=== PATIENT | male | born 1980 | race Asian ===

== ENCOUNTER 2017-06-21 08:41 | Observation (INO) | payer OTHER ==
[~2017-06-21] VITALS: Ht 182.9 cm; Wt 85.2 kg
[2017-06-21] VITALS (35 sets, daily range): BP systolic 114–128; BP diastolic 60–81; PULSE 52–80; RESP 10–24; Ht 182.9 cm; Wt 85.2 kg
[2017-06-21] MEDS ORDERED: CEFAZOLIN 2 GM/50 ML (PMX) 50 ML IVPB SCH (12:30)
[2017-06-21] MEDS: NS + KCL 20 MEQ 1,000 ML IV SCH (13:00)
[2017-06-21] MEDS ORDERED: VANCOMYCIN 1 GM INJ ONE (14:01)
[2017-06-21] MEDS ORDERED: LIDOCAINE 1% (MPF) 30 ML INJ ONE (14:01)
[2017-06-21] MEDS ORDERED: THROMBIN 5000 UNIT VIAL ONE (14:02)
[2017-06-21] MEDS ORDERED: BUPIVACAINE 0.5% (SDV) 30 ML INJ ONE (14:02)
[2017-06-21] MEDS ORDERED: POLYMYXIN/BACITRACIN 1L IRRIG ONE (14:02)
[2017-06-21] MEDS ORDERED: LIDOCAINE 2%/EPI 30 ML INJ ONE (14:02)
[2017-06-21] MEDS ORDERED: GELATIN SIZE 100 SPONGE ONE (14:02)
[2017-06-21] MEDS ORDERED: METOCLOPRAMIDE 10 MG INJ ONE (14:55)
[2017-06-21] MEDS ORDERED: MIDAZOLAM 1 MG/ML 2 ML INJ ONE (14:55)
[2017-06-21] MEDS ORDERED: PROPOFOL 20 ML ONE (14:55)
[2017-06-21] MEDS ORDERED: ROCURONIUM 50 MG INJ ONE (14:55)
--- NOTE | 2017-06-21 15:00 | HPN ---
Date/Time of Note Date/Time of Note DATE: 06/21/17 TIME: 14:59 Interval H&P Admission Note Pt. seen H&P reviewed: No system changes SHANON MALONEY MD Jun 21, 2017 14:59
[2017-06-21] MEDS ORDERED: DEXAMETHASONE 4 MG/ML 1 ML INJ ONE (15:08)
[2017-06-21] MEDS ORDERED: CEFAZOLIN 1 GM INJ ONE (15:08)
[2017-06-21] MEDS ORDERED: HYDROmorphONE 2 MG/ML SYG ONE (16:08)
[2017-06-21] MEDS ORDERED: GLYCOPYRROLATE 0.4 MG INJ ONE (17:06)
[2017-06-21] MEDS ORDERED: NEOSTIGMINE 3 MG/3 ML SYRINGE ONE (17:06)
--- NOTE | 2017-06-21 17:29 | OPR ---
Date/Time of Note Date/Time of Note DATE: 06/21/17 TIME: 17:26 Operative Report Procedure Date: Jun 21, 2017 Preoperative Diagnosis 1. L5-S1 herniated disc. 2. Right S1 radiculopathy. Postoperative Diagnosis 1. L5-S1 herniated disc. 2. Right S1 radiculopathy. Operation Performed 1. Right L5-S1 microdiscectomy. Surgeon: SHANON MALONEY MD Anesthesia Type: general Anesthesiologist: DESTINEY SHARMA MD Estimated Blood Loss: 0 - 10 ml's Transfusion Required: no Specimens L5-S1 disc Grafts/Implants: none Tubes/Drains none Complications: no Complications none Pt Condition Post Procedure: stable Disposition: PACU SHANON MALONEY MD Jun 21, 2017 17:29
[2017-06-21] MEDS ORDERED: ACETAMINOPHEN 325 MG TAB PO PRN (17:30)
[2017-06-21] MEDS ORDERED: DIAZEPAM 5 MG TAB PO PRN (17:30)
[2017-06-21] MEDS ORDERED: ONDANSETRON 4 MG INJ IV PRN ×2 (17:30→18:00)
[2017-06-21] MEDS ORDERED: HYDROCODONE/APAP (5/325) TAB PO PRN ×2 (17:30)
[2017-06-21] MEDS ORDERED: ZOLPIDEM 5 MG TAB PO PRN (17:30)
[2017-06-21] MEDS ORDERED: CEPASTAT LOZENGE MT PRN (17:30)
[2017-06-21] MEDS ORDERED: DIPHENHYDRAMINE 50 MG CAP PO PRN (17:30)
--- NOTE | 2017-06-21 17:50 | RADRPT ---
PROCEDURE: Intraoperative imaging of the lumbar spine with fluoroscopy. CLINICAL INDICATION: Back pain. Intraoperative. TECHNIQUE: Four images of the lumbar spine were obtained in the operating room with an image inten sifier. No radiologist was in attendance. Fluoroscopy time is 4 seconds . COMPARISON: No prior study is available for comparison. FINDINGS: Images demonstrate surgical instruments overlying the lower lumbar spine. IMPRESSION: 1. Intraoperative imaging of the lumbar spine. RPTAT: QQ .Gregg Hercules MD, MD Date Time Electronically viewed and signed by .Gregg Hercules MD, on 06/21/2017 17:50 .R/
[2017-06-21] MEDS ORDERED: HYDROmorphONE (0.2 MG/ML) 10ML SYG IV PRN ×3 (18:00)
[2017-06-21] MEDS ORDERED: METOCLOPRAMIDE 10 MG INJ IV PRN (18:00)
[2017-06-21] MEDS ORDERED: MEPERIDINE 25 MG INJ IV PRN (18:00)
[2017-06-21] MEDS ORDERED: DIPHENHYDRAMINE 50 MG INJ IV PRN (18:00)
[2017-06-21] MEDS: CEFAZOLIN 1 GM/50 ML (PMX) 50 ML IVPB SCH ×2 (18:25→23:45)
[2017-06-21] MEDS: SOD CHLORIDE 0.45% 1,000 ML IV SCH (18:33)
--- NOTE | 2017-06-21 20:21 | OPR ---
DATE OF OPERATION: 06/21/2017 PREOPERATIVE DIAGNOSES: 1. L5-S1 herniated disc. 2. Right L5-S1 radiculopathy. POSTOPERATIVE DIAGNOSES: 1. L5-S1 herniated disc. 2. Right L5-S1 radiculopathy. OPERATION PERFORMED: Right L5-S1 microdiskectomy. SURGEON: Florencio Martinez MD ANESTHESIOLOGIST: Karuna Bright MD ANESTHESIA: General endotracheal. ESTIMATED BLOOD LOSS: 5 mL. DRAINS PLACED: None. SPECIMEN COLLECTED: Herniated disc. FINDINGS: L5-S1 herniated disc with S1 nerve root compression. COMPLICATIONS: None. DISPOSITION: Recovery. INDICATIONS: Patient is a 36-year-old male with right L5 lower extremity pain consistent with S1 radiculopathy. MRI revealed a large herniated disc bulge causing compression of the S1 nerve root. The patient had loss of ankle reflexes and had some transient weakness but this had improved. The risks, benefits and alternatives to surgical intervention were discussed, the patient elected for surgery. OPERATIVE PROCEDURE: The patient was brought into the OR. He was sedated, intubated, anesthesia successfully induced. Sequential compression devices were placed. A Kirkpatrick catheter was not placed. Perioperative antibiotics were given. The patient was placed in a prone position on a Fito frame that was on a Eliud table. All pressure points were checked for appropriate padding. The patient was sterilely prepped and draped. Fluoroscopy was used to localize the initial incision, and the patient was sterilely prepped and draped. Electrophysiologic monitoring was performed for the nerve root just showed initial 40% diminution of the S1 nerve root on the right. After surgical time-out, the procedure began. A 10 blade knife was used to make an incision above the spinous processes of L5 and S1. Bovie electrocautery was used to dissect through the subcutaneous tissue down to the spinous processes. Cisco's were placed on the spinous processes to confirm the L5 and S1 spinous processes. Bovie electrocautery was then used to unilaterally dissect laterally along the L5-S1 spinous processes and lamina to the medial aspect of the facet joint. Self- retaining retractors were placed. The microscope was then brought in for microdissection. A curette was used to separate the ligamentum flavum from the lamina. The interlaminar ligament of flavum was then removed and the thecal sac visualized. A laminotomy of the superior aspect of S1 and inferior aspect of L5 was performed, and then Kerrison rongeur was used to remove ligamentum flavum to reveal the thecal sac and S1 nerve root. There was significant bulging. The S1 nerve was compressing into the medial facet joint and could not be mobilized medially. The thecal sac was mobilized medially to reveal in the axilla a disc bulge. There did not appear to be a large rent or free disc herniation. An 11 blade knife was then used to open the disc bulge which appeared to be subligamentous, though there was also rent in the anulus. Multiple large fragments of disc were removed with pituitary rongeurs. This was carried forth superiorly and inferiorly in the subligamentous space. Also, slight rented disc space, this was removed. This was continued until there no longer appeared to be any free fragments of disc bulge. At this point, the nerve root appeared significantly decompressed and was able to be easily mobilized medially and laterally. An Adson-King was used to probe inferiorly towards the S1 foramina and superiorly towards the shoulder, and there was no evidence of compression, and shoulder nerve root could also be mobilized, and evaluation of the inferior aspect of the nerve root was also evaluated and again there was only a significant amount of fat but no evidence of any free herniated disc or further nerve root compression. With the discectomy complete, the wound was copiously irrigated with bacitracin irrigation and the self-retaining retractors removed. Bovie electrocautery was used to stop any venous oozing and then again bacitracin irrigation used to irrigate the incision. The incision was closed with 0-Vicryl interrupted sutures, and the fascia with 2-0 interrupted subcutaneous sutures, 3-0 interrupted subcuticular sutures, and running 4-0 subcuticular suture. Dermabond was placed on incision, allowed to dry and sterile dressing applied. The patient was taken off the table, extubated, and taken to recovery room. Sponge, needle and cottonoid count were reported correct at the end of the case. Electrophysiologic monitoring showed improvement in the S1 nerve root. Dictated By: Florencio Martinez MD /ted/humaira /Document#: [id number]
[2017-06-22 00:50] VITALS: BP 124/71; RESP 20
[2017-06-22] MEDS: SOD CHLORIDE 0.45% 1,000 ML IV SCH ×2 (04:19→13:29)
[2017-06-22] MEDS: CEFAZOLIN 1 GM/50 ML (PMX) 50 ML IVPB SCH ×2 (05:47→12:06)
[2017-06-22 08:00] VITALS: BP 102/57; RESP 18
--- NOTE | 2017-06-22 08:11 | PN ---
Date/Time of Note Date/Time of Note DATE: 06/22/17 TIME: 08:09 Assessment/Plan Lines/Catheters IV Catheter Type (from [facility]): Peripheral IV Kirkpatrick in Place (from [facility]): No Assessment/Plan Chief Complaint/Hosp Course POD # 1 s/p right L5-S1 microdiscectomy. Doing well. D/C home after PT. Problems: Subjective 24 Hr Interval Summary Doing well. Denies LE pain only back soreness. No fever or chills. Denies weakness. Exam/Review of Systems Vital Signs Vitals Vital Signs Date Time Temp Pulse Resp B/P Pulse Ox O2 Delivery O2 Flow Rate FiO2 06/22/17 00:50 97.4 71 20 124/71 98 06/21/17 22:46 Room Air 06/21/17 17:38 10.0 Intake and Output 06/21/17 06/21/17 06/22/17 15:00 23:00 07:00 Intake Total 1100 ml 1780 ml Output Total 5 ml 1875 ml Balance 1100 ml -5 ml -95 ml Exam Constitutional: alert, oriented, well developed Neurological: [employer] REPRESENTATIVE II-XII intact, nl mental status, nl speech, nl strength Skin: other (incision clean, dry and intact.) GRAVELY,SHANON Chen MD Jun 22, 2017 08:11
--- NOTE | 2017-06-22 08:11 | PN ---
Date/Time of Note Date/Time of Note DATE: 06/22/17 TIME: 08:09 Assessment/Plan Lines/Catheters IV Catheter Type (from [facility]): Peripheral IV Kirkpatrick in Place (from [facility]): No Assessment/Plan Chief Complaint/Hosp Course POD # 1 s/p right L5-S1 microdiscectomy. Doing well. D/C home after PT. Problems: Subjective 24 Hr Interval Summary Doing well. Denies LE pain only back soreness. No fever or chills. Denies weakness. 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
--- NOTE | 2017-06-22 08:11 | PN ---
Date/Time of Note Date/Time of Note DATE: 06/22/17 TIME: 08:09 Assessment/Plan Lines/Catheters IV Catheter Type (from [facility]): Peripheral IV Kirkpatrick in Place (from [facility]): No Assessment/Plan Chief Complaint/Hosp Course POD # 1 s/p right L5-S1 microdiscectomy. Doing well. D/C home after PT. Problems: Subjective 24 Hr Interval Summary Doing well. Denies LE pain only back soreness. No fever or chills. Denies weakness. 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
[2017-06-22] MEDS ORDERED: DOCUSATE SODIUM 100 MG CAP PO SCH (09:00)
[2017-06-22] MEDS: NS + KCL 20 MEQ 1,000 ML IV SCH (13:00)
--- NOTE | 2017-07-06 11:25 | DS ---
Date/Time of Note Date/Time of Note DATE: 07/06/17 TIME: : Discharge Summary Admission/Discharge Info Admit Date/Time Jun 21, 2017 at 11:39 Discharge Date/Time Jun 22, 2017 at 14:58 Discharge Diagnosis 1.S1 radiculopathy. 2. L5-S1 herniated disc. Patient Condition: Good Procedures Right L5-S1 microdiscectomy Hx of Present Illness 37-year-old male with history of chronic left S1 radiculopathy and L5-S1 herniated disc. The patient had not had adequate relief with nonoperative therapy and elected for surgical intervention. The patient had an absent Achilles reflex and had had some right dorsiflexion weakness but this had resolved prior to consultation. Hospital Course The patient tolerated the procedure well. Postoperatively, he stated that his radicular symptoms had improved. He denied any numbness, tingling, or weakness. He was mobilized on the day of surgery was seen by physical therapy the next day. The patient was discharged home on postoperative day 1. At the time of discharge the patient was neurologically stable without motor deficits. His incision was clean, dry, and intact. He was afebrile, tolerating a regular diet , ambulating and had been seen by physical therapy. Home Meds No Active Prescriptions or Reported Meds Follow-up Plan At discharge he was given [place], 10/325, 30 tablets, Valium 5 mg by mouth 3 times a day as needed, and Colace to prevent constipation. He was instructed that he could resume any preoperative medications. The patient was given appropriate discharge instructions and precautions. He was advised to call the office for follow-up in 2 weeks. The patient expressed understanding and agreement with the instructions and precautions given and was discharged in improved condition from her preoperative state Primary Care Provider Not On Staff Doctor Time spent on discharge: < 30 minutes SHANON MALONEY MD Jul 06, 2017 11:25
== END 2017-06-22 14:58 | disposition home or self-care (01) ==
LOC: REC 11:39 → INTOOBSV 11:39 → OBSVTOIN 11:39 → MS1 20:00
PROVIDERS: ADMIT Neurological Surgery; ATTEND Neurological Surgery
DX: M51.17 Intervertebral disc disorders with radiculopathy, lumbosacral region (principal)
CPT/HCPCS: 63030; 69990; 72110; 86850; 86900; 86901; 88304; 97161; 99217; G0378; J0690; J1100; J1170; J2250; J2405; J2710; J2765; J1200; J3370